=== PATIENT | female | born 1950 | race Native Hawaiian/Other Pacific Islander ===

== ENCOUNTER 2020-10-20 11:43 | Outpatient (CLI) | payer OTHER | END 2020-10-20 19:04 | disposition home or self-care (01) | LOC: RAD 11:43 | PROVIDERS: ATTEND Physician Assistant | DX: M25.552 Pain in left hip (principal) ==

== ENCOUNTER 2021-01-05 12:48 | Outpatient (CLI) | payer OTHER | END 2021-01-05 23:12 | disposition home or self-care (01) | LOC: CT 12:48 | PROVIDERS: ATTEND Physical Medicine & Rehabilitation | DX: M54.5 Low back pain (principal) ==